=== PATIENT | female | born 1960 | race Caucasian/White ===

== ENCOUNTER 2016-07-30 16:22 | Emergency (ER) | payer OTHER ==
[~2016-07-30 16:22] MED LIST: ASPIR-TRIN325 M2 PO; BACTRIM DS TAB1 EAC2 PO; CYCLOBENZAPRINE5 M1 PO; EXCEDRIN; EXCEDRIN EXTRA1 EAC4 PO; NORCO 7.5-3251 EACH PO; VIBRAMYCIN100 MG/TA1 PO; ZANTAC150 M1 PO; ZITHROMAX250MG Z-PAK PO
[2016-07-30] MEDS ORDERED: LEVAQUIN750 M1 PO (16:45)
[2016-07-30] MEDS ORDERED: VENTOLIN HFA18 G2 PO (16:47)
[2016-07-30 17:25] LABS: URINE BILIRUBIN NEGATIVE (NEG); URINE BLOOD SMALL (NEG); URINE GLUCOSE (UA) NEGATIVE (NEG); URINE KETONE NEGATIVE (NEG); URINE LEUKOCYTE ESTERASE POSITIVE (NEG); URINE NITRITE NEGATIVE (NEG); URINE PROTEIN SMALL (NEG)
[2016-07-30 17:30] LABS: URINE APPEARANCE HAZY; URINE COLOR YELLOW
[2016-07-30 17:38] LABS: URINE AMORPHOUS 1+; URINE MUCUS 1+; URINE RBC RARE /[HPF] (0-5)
[2016-07-30 17:50] LABS: BASO % 0.3 % (0-2); EOSINOPHIL ABSOLUTE COUNT 0.2 tho/cmm (0.0-0.7); HCT-HEMATOCRIT 37.8 % (34.0-49.0); IMMATURE GRANULOCYTES ABSOLUTE 0.02 tho/cmm (0-0.03); IMMATURE GRANULOCYTES PERCENT 0.2 % (0-0.3); LYMPH % 21.6 % (20-45); LYMPH ABSOLUTE COUNT 2.1 tho/cmm (0.8-4.5); MCH (MEAN CORPUSCULAR HGB) 32.3 pg (28.0-32.0); MCHC MEAN CORPUSCULAR HGB CONC 34.4 % (32.0-36.0); MEAN PLATELET VOLUME 8.8 cmc (9.4-12.4); MONOCYTE ABSOLUTE COUNT 0.7 tho/cmm (0.0-1.2); NEUTROPHIL ABSOLUTE COUNT 6.6 tho/cmm (1.6-8.0); NEUTROPHIL-AUTOMATED 6.6 tho/cmm (1.6-8.0); NEUTROPHILS % 68.9 % (40-80); PLATELET COUNT 370 tho/cmm (150-450); RED BLOOD COUNT 4.02 mil/cmm (4.00-5.20); RED CELL DISTRIBUTION WIDTH 12.1 % (12.4-16.4); WHITE BLOOD COUNT 9.6 tho/cmm (4.0-10.0)
[2016-07-30 18:07] LABS: ALB/GLOB RATIO 0.8 (0.8-2.0); ALBUMIN 3.3 g/dl (3.5-5.0); ALKALINE PHOSPHATASE 85 U/L (33-138); ALT/SGPT 17 U/L (12-78); BILIRUBIN,TOTAL 0.4 mg/dl (0-1.5); BLOOD UREA NITROGEN 16 mg/dl (6-24); CALCIUM 8.9 mg/dl (8.5-10.5); CARBON DIOXIDE-VENOUS 30 mmol/L (22-32); CHLORIDE 107 mmol/l (96-110); CREATININE 0.58 mg/dl (0.50-1.10); GLUCOSE 93 mg/dL (70-110); LIPASE 59 U/L (73-393); SODIUM 145 mmol/L (135-145); eGFR VALUE FOR BLACK >90 mL/Min
[2016-07-30 18:11] LABS: ANION GAP 12 mmol/L (0-20); AST/SGOT 11 U/L (10-40); POTASSIUM 3.6 mmol/L (3.7-5.1)
[2016-07-30] MEDS ORDERED: OMEPRAZOLE20 M3 PO (19:43)
[2016-07-30] MEDS ORDERED: ZOFRAN ODT4 MG PO (19:44)
== END 2016-07-30 20:05 ==
LOC: EDMED 16:22
PROVIDERS: Emergency Medicine
DX: J18.9 Pneumonia, unspecified organism (principal); R10.9 Unspecified abdominal pain; Z87.891 Personal history of nicotine dependence